=== PATIENT | female | born 1985 | race Caucasian/White ===

== ENCOUNTER → 2018-05-18 | Outpatient (CLI) | payer OTHER ==
[2018-05-18 10:51] VITALS: BP 130/88; PULSE 77; BMI 35.5
--- NOTE | 2018-05-18 11:16 | P.GSHP ---
History of Present Illness H&P Date: 05/18/18 Patient is able to feel a nodule in her right breast since November. No nipple discharge or changes. The patient originally presented secondary to lateral left breast pain. She states that she does not note any nodules in her left breast but does not note a nodule in her right breast since November. The area that she notes that nodularity at is consistent with the area seen in the right breast of microcalcifications on her mammogram. The patient has not had any trauma to her breast. The patient does not have any infection in her breast. The patient drinks at least one caffeinated beverage a day. She does not smoke and does not live with a smokers. The patient does not eat much chocolate. The pain in the left breast is not cyclical is constant in nature. This located in the lateral aspect of the breast. It does not radiate anyplace. The pain never goes away. She does not know what would make it better or worse. She questions whether this may be muscular in nature. Family history: 1. Maternal great grandmother: breast 2. Paternal grandmother: Breast cancer at the age of 84 Hormonal history: Menarche: 12 Pregnancies: First at the age of 24, she did breast-feed Periods are regular initially on control however they have become more regular since she has had a tubal ligation control pills: 4 years Hormones: none Past Surgical History: 1. tubal 2. two c-sections 3. wisdom teeth Past Medical History: 1. knees pain Social History smoke: none alcohol: none drugs: none - Constitutional Constitutional: Denies chills, Denies fever - EENT Eyes: bilateral blurred vision (with migrains) Ears: bilateral: decreased hearing, deny: tinnitus Ears, nose, mouth and throat: Reports headache - Breasts Breasts: bilateral: as per HPI - Cardiovascular Cardiovascular: Reports high blood pressure - Respiratory Comment: asthma Respiratory: Denies cough, Denies 7 - Gastrointestinal Gastrointestinal: Denies abdominal pain, Denies diarrhea, Denies nausea, Denies vomiting - Genitourinary (Female) Genitourinary: Denies dysuria, Denies hematuria - Menstruation Menstruation: Reports as per HPI - Musculoskeletal Comment: pinched nerves in back Musculoskeletal: Denies myalgias - Integumentary Integumentary: Denies pruritus, Denies rash - Neurological Neurological: Reports numbness, Denies weakness - Psychiatric Psychiatric: Reports anxiety, Reports depression - Endocrine Endocrine: Reports fatigue, Reports weight change - Hematologic/Lymphatic Comment: none - Allergic/Immunologic Allergic/Immunologic: Reports seasonal allergies Past Medical History Past Medical History: No Reported History History of Any Multi-Drug Resistant Organisms: None Reported Past Surgical History: Section, Tubal Ligation Past Psychological History: No Psychological Hx Reported Smoking Status: Never smoker Past Alcohol Use History: Occasional Past Drug Use History: None Reported - Past Family History Father Family Medical History: Osteoarthritis (OA) Additional Family Medical History / Comment(s): knee issues Mother Family Medical History: Diabetes Mellitus, Osteoarthritis (OA), Sleep Apnea/CPAP /BIPAP, Thyroid Disorder Additional Family Medical History / Comment(s): knee issues Medications and Allergies Home Medications Medication Instructions Recorded Confirmed Type Desvenlafaxine Succinate [Pristiq] 50 mg PO DAILY 05/18/18 05/18/18 History Allergies Allergy/AdvReac Type Severity Reaction Status Date / Time Penicillins Allergy Unknown Verified 06/21/14 21:04 Surgical - Exam Vital Signs Pulse BP Pulse Ox 77 130/88 99 05/18/18 10:46 05/18/18 10:46 05/18/18 10:46 - General well developed, well nourished, no distress - Eyes normal ocular movement, no icteric - ENT no hearing loss, no congestion - Neck no masses, trachea midline - Respiratory normal respiratory effort, clear to auscultation - Cardiovascular Rhythm: regular Heart Sounds: normal: S1, S2 - Abdomen Abdomen: soft, non tender, no guarding, no rigid, no rebound - Neurologic no disoriented, no combative - Musculoskeletal normal gait, normal posture - Psychiatric oriented to time, oriented to person, oriented to place, speech is normal, memory intact Breast examination: Right breast: Multiple positional exam fibrocystic changes, and the periareolar area at approximately the 3 o'clock position there is some increased nodularity which is somewhat tender for the patient This appears to correspond to that which was seen mammographically Right axilla: No adenopathy of concern Left breast: Multiple positional exam no dominant masses or nodules of concern fibrocystic changes Left axilla: No adenopathy of concern Results Radiograph reports reviewed Assessment and Plan Assessment: Impression/plan: 1. Radiographic abnormality right breast 2. Palpable change right breast 3. Left breast pain 4. Hypertension 5. Anxiety/depression Plan: 1. FNA of palpable change right breast 2. We have discussed causes for breast pain including caffeine and the possibility that the pain may be decreased if she can stop the caffeine 3. Medical management of medical problems We are going to do an FNA of the palpable change in the right breast, depending on results of this we may opt for excision of the area of concern versus continued surveillance with repeat mammogram in 6 months time. The patient is also been instructed to stop caffeine and that this may help with the pain in the left breast. She has also been instructed to take primrose oil and she will be seen again next week for results of the FNA. Cc: Dr. Dalton
--- NOTE | 2018-05-18 11:20 | P.PCN ---
Date of Procedure: 05/18/18 Preoperative Diagnosis: Palpable mass right breast periareolar area Postoperative Diagnosis: Same Procedure(s) Performed: FNA of the right breast palpable abnormality Surgeon: Citlaly Dela Cruz Estimated Blood Loss (ml): 0 Pathology: other (cytology right breast) Condition: stable Disposition: same day Indications for Procedure: palpable nodule right breast Description of Procedure: The area of the right breast periareolar area was prepped using alcohol. 22- gauge needle on a 10 mL syringe was passed into the palpable abnormality and cells were obtained. The cells were placed on a slide and sent to pathology. The patient tolerated the procedure in stable condition.
== END ==
LOC: WWCWWP 10:20
PROVIDERS: ATTEND Surgery
DX: N63.10 Unspecified lump in the right breast, unspecified quadrant (principal)
CPT/HCPCS: 88173

== ENCOUNTER → 2018-05-25 | Outpatient (CLI) | payer OTHER ==
[2018-05-25 09:38] VITALS: BP 134/85; PULSE 77; BMI 35.5
--- NOTE | 2018-05-25 09:49 | P.PN ---
Progress Note - Text Progress Note Date: 05/25/18 Patient is a 33-year-old white female who is status post FNA of a palpable abnormality in the right breast. The cytology came back with no atypical cells and adipose tissue. This would be consistent with some lobulated fatty tissue which was most likely palpable. The patient is reassured. And the patient will follow up in 3 months time for repeat examination. Physical exam: Examination of the area of the FNA reveals some mild ecchymosis no evidence of infection or hematoma Impression/plan: 1. Mammographic abnormality right breast 2. Palpable change left breast FNA benign adipose tissue Plan: 1. Repeat mammogram/and an ultrasound of the right breast 6 months from her last mammogram with physician exam at that time 2. If patient notes any anything of concern would like to see her sooner Cc: Dr. Audelia Dalton
== END ==
LOC: WWCWWP 09:26
PROVIDERS: ATTEND Surgery
DX: Z53.9 Procedure and treatment not carried out, unspecified reason (principal)

== ENCOUNTER 2019-01-09 08:11 | Emergency (ER) | payer BC, OTHER ==
[2019-01-09 08:21] VITALS: RESP 18
[2019-01-09] MEDS ORDERED: DIPH,PERTUS(ACELL)TETVAC-LF 0.5 ML VIAL IM ONE (08:30)
[2019-01-09] MEDS ORDERED: CLINDAMYCIN 600 MG in DEXTROSE 5% IN WATER 50 ML IVPB STA ×2 (08:31)
[2019-01-09] MEDS ORDERED: LEVOFLOXACIN 750MG-D5W PMX 750 MG in DEXTROSE/WATER 1 150ML.BAG IVPB STA (08:31)
[2019-01-09] MEDS ORDERED: SODIUM CHLORIDE 0.9% 1,000 ML IV ONE (08:32)
[2019-01-09] MEDS ORDERED: MORPHINE SULFATE 4 MG/ML SYRINGE IVP STA (08:32)
--- NOTE | 2019-01-09 08:37 | ED ---
Animal Bite HPI - General Chief Complaint: Animal Bite Stated Complaint: DOG BITE Time Seen by Provider: 01/09/19 08:21 Source: patient, EMS, RN notes reviewed, old records reviewed Mode of arrival: EMS - History of Present Illness Initial Comments: Management is a 33-year-old female who presents emergency department today after her pitbull bit her jaw and lip. Patient reports that she was in an argument with her son. The dog jumped up to protect her son and bit her in the face. Patient reports the dog was recently fixed, and received all his vaccines yesterday. Patient states that he removed a piece of the skin over her jaw line. Patient reports that the laceration is through her lip. She denies any other injuries at this time. She states her tetanus is not up-to-date. Patient is not concern for rabies for the dog at this time. Declines rabies prophylaxis. - Related Data Home Medications Medication Instructions Recorded Confirmed No Known Home Medications 01/09/19 01/09/19 Allergies Allergy/AdvReac Type Severity Reaction Status Date / Time Penicillins Allergy Anaphylaxis Verified 01/09/19 08:42 latex powder Allergy Anaphylaxis Uncoded 01/09/19 08:22 Review of Systems ROS Statement: Those systems with pertinent positive or pertinent negative responses have been documented in the HPI. ROS Other: All systems not noted in ROS Statement are negative. Past Medical History Past Medical History: Hypertension History of Any Multi-Drug Resistant Organisms: None Reported Past Surgical History: Section, Tubal Ligation Additional Past Surgical History / Comment(s): wisdom teeth removed Past Psychological History: No Psychological Hx Reported Smoking Status: Never smoker Past Alcohol Use History: None Reported Past Drug Use History: None Reported - Past Family History Father Family Medical History: Osteoarthritis (OA) Additional Family Medical History / Comment(s): knee issues Mother Family Medical History: Diabetes Mellitus, Osteoarthritis (OA), Sleep Apnea/CPAP/BIPAP, Thyroid Disorder Additional Family Medical History / Comment(s): knee issues General Exam - General Exam Comments Initial Comments: This is a 33-year-old female. Alert and oriented 3. Patient appears anxious. General appearance: alert, in no apparent distress Head exam: Present: atraumatic, normocephalic, normal inspection Eye exam: Present: normal appearance, PERRL, EOMI. Absent: scleral icterus, conjunctival injection, periorbital swelling ENT exam: Present: mucous membranes moist, other (Patient has a 6 cm x 3 cm irregular laceration with missing soft tissue and skin. Laceration is through and through to the lip.). Absent: normal exam Neck exam: Present: normal inspection. Absent: tenderness, meningismus, lymphadenopathy Respiratory exam: Present: normal lung sounds bilaterally. Absent: respiratory distress, wheezes, rales, rhonchi, stridor Cardiovascular Exam: Present: regular rate, normal rhythm, normal heart sounds. Absent: systolic murmur, diastolic murmur, rubs, gallop, clicks GI/Abdominal exam: Present: soft, normal bowel sounds. Absent: distended, tenderness, guarding, rebound, rigid Extremities exam: Present: normal inspection, full ROM, normal capillary refill. Absent: tenderness, pedal edema, joint swelling, calf tenderness Back exam: Present: normal inspection Neurological exam: Present: alert, oriented X3, CN II-XII intact Psychiatric exam: Present: normal affect, normal mood Skin exam: Present: warm, dry, intact, normal color. Absent: rash Course Vital Signs 01/09/19 08:18 Temperature 97.8 F Pulse Rate 77 Respiratory 18 Rate Blood Pressure 147/99 O2 Sat by Pulse 96 Oximetry Medical Decision Making - Medical Decision Making Patient is a 33-year-old female presents emergency department today with a dog bite. Patient has a extensive irregular laceration involving the right jaw and lip, and it is a through and through laceration. Patient's laceration was thoroughly irrigated with sterile water and wet-to-dry dressing was placed. She declines rabies prophylaxis. Patient's airway is protected, no neck trauma noted. Patient was started on IV clindamycin and Levaquin due to ALLERGIES to penicillins. Patient was given pain medication. Patient given TDAP. Patient will need to be transferred due to the extensive laceration and will require plastic surgery consult. Patient's family requests transferred Kennedy Quintana. I discussed the case with Dr. Derek Quintana accepts the transfer. Disposition Clinical Impression: Dog bite of face Disposition: DC/TRNS INTERMEDIATE CARE FAC Condition: Stable Instructions (If sedation given, give patient instructions): Animal Bite (ED) Is patient prescribed a controlled substance at d/c from ED?: No Referrals: Audelia Dalton DO [Primary Care Provider] - 1-2 days Time of Disposition: 09:09 - Out of Hospital Transfer - Req. Specs Out of Hospital Transfer - Requested Specifics: Other Emergency Center ([facility])
[2019-01-09] MEDS ORDERED: SODIUM CHLORIDE 0.9% 1,000 ML IV SCH (08:45)
[2019-01-09] MEDS ORDERED: ONDANSETRON 4 MG/2 ML VIAL IVP STA (08:55)
[2019-01-09 10:08] VITALS: BP 139/99; PULSE 70
[2019-01-09 10:09] VITALS: TEMP 97.6
== END 2019-01-09 10:09 ==
LOC: EC 08:11
DX: S01.81XA Laceration without foreign body of other part of head, initial encounter (principal); S01.511A Laceration without foreign body of lip, initial encounter; Z88.0 Allergy status to penicillin; Z91.040 Latex allergy status; Z53.29 Procedure and treatment not carried out because of patient's decision for other reasons; Z23 Encounter for immunization; W54.0XXA Bitten by dog, initial encounter; Y92.009 Unspecified place in unspecified non-institutional (private) residence as the place of occurrence of the external cause
CPT/HCPCS: 90715; 99284; 96365; 96368; 96375 ×2; 90471; J2270; J2405; J1956

== ENCOUNTER → 2019-06-12 | Outpatient (CLI) | payer BC, OTHER ==
--- NOTE | 2019-06-13 07:50 | MM ---
Reason for exam: follow-up at short interval from prior study. History: Family history of breast cancer in paternal grandmother at age 80. Cyst aspiration of the right breast, May 21, 2018. Physical Findings: Nurse Summary: 0.75cm nodule in the left breast at 11 o'clock and a 0.5cm nodule in the left breast at 2 o'clock (nurse TM). MG 3D Diag Mammo W/Cad JANET Bilateral CC and MLO view(s) were taken. The breast tissue is heterogeneously dense. This may lower the sensitivity of mammography. Finding: There are typically benign dystrophic calcifications in the subareolar position of the right breast. There is no discrete abnormality. These results were verbally communicated with the patient and result sheet given to the patient on 06/12/19. ASSESSMENT: Incomplete: need additional imaging evaluation, BI-RAD 0 RECOMMENDATION: Ultrasound of the left breast. (palpable on left, 2 sites)
--- NOTE | 2019-06-13 07:52 | USB ---
Reason for exam: additional evaluation requested from abnormal screening. History: Family history of breast cancer in paternal grandmother at age 80. Cyst aspiration of the right breast, May 21, 2018. US Breast Limited LT Left limited breast ultrasound including focal area of concern, retroareolar and axilla demonstrates no cystic or solid lesion seen. Dense tissue. These results were verbally communicated with the patient and result sheet given to the patient on 06/12/19. ASSESSMENT: Negative, BI-RAD 1 RECOMMENDATION: Routine screening mammogram of both breasts at age 40.
== END | disposition home or self-care (01) ==
LOC: RADMAMWWP 15:33
PROVIDERS: ATTEND Family Medicine
DX: R92.8 Other abnormal and inconclusive findings on diagnostic imaging of breast (principal)
CPT/HCPCS: 77062; 77066

== ENCOUNTER → 2019-06-19 | Outpatient (CLI) | payer OTHER ==
--- NOTE | 2019-06-19 17:28 | CT ---
EXAMINATION TYPE: CT brain dora wo con DATE OF EXAM: 06/19/2019 COMPARISON: NONE HISTORY: contusion to back of head following head injury. Head and neck pain. CT DLP: 1762 mGycm. Automated Exposure Control for Dose Reduction was Utilized. TECHNIQUE: CT scan of the head and cervical spine are performed without contrast. FINDINGS: There is no acute intracranial hemorrhage, mass effect, or midline shift identified. The ventricles and sulci are within normal limits in size. The globes are intact. Mild mucosal thickeni ng is seen of the ethmoid sinuses and left maxillary sinus. There is mild leftward nasal septal devia tion. Remaining paranasal sinuses and mastoid air cells are well aerated. Calvarium appears intact. Cervical spine is visualized in its entirety from C1 through upper thoracic levels and demonstrates s atisfactory alignment without evidence of acute fracture or dislocation. Prevertebral soft tissue ap pears within normal limits. The C1-C2 articulation is unremarkable. Straightening of usual cervical lordosis. IMPRESSION: 1. There is no acute fracture or dislocation evident in the cervical spine. 2. No acute intracranial hemorrhage, mass effect, or midline shift is seen. 3. Straightening of usual cervical lordosis may relate to muscular sprain, spasm or patient positioni ng. 4. Mild paranasal sinus disease.
== END | disposition home or self-care (01) ==
LOC: RADCTMAIN 16:39
PROVIDERS: ATTEND Emergency Medicine
DX: M54.2 Cervicalgia (principal); R51 Headache; S00.03XA Contusion of scalp, initial encounter; S13.4XXA Sprain of ligaments of cervical spine, initial encounter
CPT/HCPCS: 70450; 72125

== ENCOUNTER → 2019-08-05 | Outpatient (CLI) | payer OTHER ==
--- NOTE | 2019-08-05 13:11 | CT ---
EXAMINATION TYPE: CT cervical spine wo con DATE OF EXAM: 08/05/2019 COMPARISON: None HISTORY: Sprain of ligaments of cervical spine CT DLP: 485.[address] of the cervical spine was performed with bone and soft tissue window settings submitted . Coronal and sagittal reconstruction is obtained. There is normal alignment and prevertebral soft tissues. I do not see evidence for fracture or subluxation. No significant degenerative changes are present. The lung apices are clear IMPRESSION: No evidence for fracture or subluxation of the cervical spine. No significant degenerativ e disc disease or disc herniation seen.
== END | disposition home or self-care (01) ==
LOC: RADCTMAIN 12:34
PROVIDERS: ATTEND Emergency Medicine
DX: M54.2 Cervicalgia (principal); S13.4XXA Sprain of ligaments of cervical spine, initial encounter
CPT/HCPCS: 72125

== ENCOUNTER → 2020-08-26 | Outpatient (CLI) | payer BC, OTHER ==
--- NOTE | 2020-08-26 11:58 | CONS ---
CONSULTATION DATE OF SERVICE: 08/26/2020. A 35-year-old lady who has been evaluated in the [facility] for possible obstructive sleep apnea-hypopnea syndrome. HISTORY OF PRESENT ILLNESS/SLEEP-WAKE EVALUATION: Patient usual sleep schedule on weekdays from 11 p.m. to 6:45 am and on weekends from midnight until 8:30 a.m. Sometimes she has problems with falling asleep. She has TV set in bedroom. She prefers to sleep on the stomach position. She snores and has multiple awakenings at night, at least 5 times and episodes of nocturia. Also, she has a lot of twitching and kicking of her legs and numbness in her arms. PAST MEDICAL HISTORY: Positive for episodes of anxiety. PAST SURGICAL HISTORY: Facial surgery after a dog bite, tubal ligation, x2. MEDICATIONS: None. FAMILY HISTORY: Sleep apnea, arthritis, thyroid problems. REVIEW OF SYSTEMS: Multiple awakenings from sleep, sleepiness during the day. [place] Sleepiness Scale is 10. Also patient has problems with memory, concentration, irritability, difficulties to pay attention. PHYSICAL EXAM: lady without distress, BP 137/83, HR 72, RR 15, height 5 foot, 1 inch, weight 200 pounds, BMI 37.7, temperature 98.0, oxygen saturation 98%. OROPHARYNX: Extremely low position of soft palate. Mallampati 4. NECK: 16-1/2 inches in circumference. ABDOMEN: Obese. LUNGS: Clear to percussion and to auscultation. Good air exchange. No wheezing or rhonchi. HEART: S1, S2 regular. No murmurs, gallops, or rubs. EXTREMITIES: No clubbing or cyanosis. DELIVERY TECHNICIAN: Awake, alert, and oriented X3. Cranial nerves 2 to 7 intact. There is no fasciculation or atrophy. noted. No focal deficits observed. IMPRESSION: 1. Snoring, multiple awakenings from sleep, extremely low position of soft palate, Mallampati 4, wide neck 16-1/2 inches in circumference, sleepiness during the day. [place] Sleepiness Scale is 10. Obstructive sleep apnea-hypopnea syndrome. 2. Significant amount of twitching and kicking with the legs. Possible periodic limb movements. 3. Episodes of numbness in hands during the night. Possible carpal tunnel syndrome. 4. Obesity, BMI 37.7. 5. History of anxiety episodes. 6. Status post facial surgery after a dog bite. 7. Status post tubal ligation. 8. Status post x2. PLAN: 1. Polysomnography for evaluation of patient's breathing during sleep. 2. CPAP/BiPAP titration if sleep study confirms obstructive sleep apnea-hypopnea syndrome. 3. Preferable position during sleep on the side. 4. No driving if patient feels any sleepiness. 5. I will see patient for follow up visit to explain results of testing and following plan. Thank you very much for referring this patient for consultation. Sincerely, Mahendra Zamarripa MD, PhD, FAASM Diplomat of [employer] [employer] Mental Health Therapist of [facility] [place] MMODL / IJN: [id number] /
== END | disposition home or self-care (01) ==
LOC: SLEEP 10:44
PROVIDERS: ATTEND Internal Medicine
DX: R06.83 Snoring (principal); R25.3 Fasciculation; E66.9 Obesity, unspecified; Z68.37 Body mass index [BMI] 37.0-37.9, adult
CPT/HCPCS: 99211

== ENCOUNTER 2020-12-11 11:37 | Emergency (ER) | payer BC, OTHER ==
[2020-12-11 11:43] VITALS: TEMP 98.4
--- NOTE | 2020-12-11 12:29 | XR ---
EXAMINATION TYPE: XR chest 2V DATE OF EXAM: 12/11/2020 COMPARISON: NONE HISTORY: covid positive, cough TECHNIQUE: Frontal and lateral views of the chest are obtained. FINDINGS: There are low lung volumes with patchy multifocal bilateral opacities. No pleural effusion or pneumothorax seen. The cardiac silhouette size is upper limits of normal. The osseous structure s are intact. IMPRESSION: Low lung volumes with patchy bilateral multifocal opacities consistent with covid-19 inf ection.
[2020-12-11] MEDS ORDERED: BAMLANIVIMAB 700 MG in SODIUM CHLORIDE 0.9% 50 ML IVPB ONE (12:45)
--- NOTE | 2020-12-11 13:02 | ED ---
General Adult HPI - General Chief complaint: Upper Respiratory Infection Stated complaint: COVID+/increased cough Time Seen by Provider: 12/11/20 11:47 Source: patient, RN notes reviewed Mode of arrival: ambulatory Limitations: no limitations - History of Present Illness Initial comments: This a 35-year-old female presents emergency Department chief plate of cough congestion shortness of breath. Patient was diagnosed with covid on 12/07/2020. Patient states that she does have a history of asthma states that she was discharged from her doctor's with azithromycin steroids and inhaler. She states this particular to change anything. She is instructed that she should receive an infusion but she is unsure what this is. Patient denies any chest or leg pain, leg swelling significant nausea vomiting diarrhea constipation she's had some on-and-off fevers. - Related Data Home Medications Medication Instructions Recorded Confirmed No Known Home Medications 01/09/19 01/09/19 Allergies Allergy/AdvReac Type Severity Reaction Status Date / Time ciprofloxacin Allergy Rash/Hives Verified 12/11/20 11:42 Penicillins Allergy Anaphylaxis Verified 01/09/19 08:42 latex powder Allergy Anaphylaxis Uncoded 01/09/19 08:22 Review of Systems ROS Statement: Those systems with pertinent positive or pertinent negative responses have been documented in the HPI. ROS Other: All systems not noted in ROS Statement are negative. Past Medical History Past Medical History: Asthma, Hypertension History of Any Multi-Drug Resistant Organisms: None Reported Past Surgical History: Section, Tubal Ligation Additional Past Surgical History / Comment(s): wisdom teeth removed Past Psychological History: No Psychological Hx Reported Past Alcohol Use History: None Reported Past Drug Use History: None Reported - Past Family History Father Family Medical History: Osteoarthritis (OA) Additional Family Medical History / Comment(s): knee issues Mother Family Medical History: Diabetes Mellitus, Osteoarthritis (OA), Sleep Apnea/CPAP/BIPAP, Thyroid Disorder Additional Family Medical History / Comment(s): knee issues General Exam Limitations: no limitations General appearance: alert, in no apparent distress Head exam: Present: atraumatic, normocephalic, normal inspection Eye exam: Present: normal appearance, PERRL, EOMI. Absent: scleral icterus, conjunctival injection, periorbital swelling ENT exam: Present: normal exam, normal oropharynx, mucous membranes moist Neck exam: Present: normal inspection, full ROM. Absent: tenderness, meningismus, lymphadenopathy Respiratory exam: Present: normal lung sounds bilaterally. Absent: respiratory distress, wheezes, rales, rhonchi, stridor Cardiovascular Exam: Present: regular rate, normal rhythm, normal heart sounds. Absent: systolic murmur, diastolic murmur, rubs, gallop, clicks GI/Abdominal exam: Present: soft, normal bowel sounds. Absent: distended, tenderness, guarding, rebound, rigid Course Vital Signs 12/11/20 11:40 Temperature 98.4 F Pulse Rate 96 Respiratory 18 Rate Blood Pressure 132/90 O2 Sat by Pulse 97 Oximetry Medical Decision Making - Medical Decision Making patient is currently stable and no signs of distress. X-ray does show some patchy infiltrates. Patient states did receive monoclonal antibodies in emergency department will be discharged in stable condition return parameters were discussed. Disposition Clinical Impression: Pneumonia due to COVID-19 virus Disposition: HOME SELF-CARE Condition: Stable Instructions (If sedation given, give patient instructions): Coronavirus Disease 2019 (COVID-19) Additional Instructions: Please return to the Emergency Department if symptoms worsen or any other concerns. Is patient prescribed a controlled substance at d/c from ED?: No Referrals: Audelia Dalton DO [Primary Care Provider] - 1-2 days Time of Disposition: 13:03
[2020-12-11 14:21] VITALS: BP 123/86; PULSE 89; RESP 16
== END 2020-12-11 14:21 | disposition home or self-care (01) ==
LOC: EC 11:37
DX: U07.1 COVID-19 (principal); J12.82 Pneumonia due to coronavirus disease 2019; I10 Essential (primary) hypertension; J45.909 Unspecified asthma, uncomplicated
CPT/HCPCS: 71046; 99283; 96374; Q0239

== ENCOUNTER → 2021-11-12 | Outpatient (CLI) | payer OTHER ==
--- NOTE | 2021-11-12 09:55 | MM ---
Reason for exam: clinical finding. Last mammogram was performed 2 years and 5 months ago. History: Family history of breast cancer in paternal grandmother at age 80. Cyst aspiration of the right breast, May 21, 2018. Took hormonal contraceptives for 4 years. Indicated problem(s): lump or thickening in both breasts. Physical Findings: Nurse Summary: 1-1.5cm nodule in the right breast at 11 o'clock (nurse db). MG 3D Diag Mammo W/Cad JANET Bilateral CC, MLO, and LM view(s) were taken. Prior study comparison: June 12, 2019, bilateral MG 3d diag mammo w/cad JANET. The breast tissue is heterogeneously dense. This may lower the sensitivity of mammography. There is no discrete abnormality. No significant new findings when compared with previous films. These results were verbally communicated with the patient and result sheet given to the patient on 11/12/21. ASSESSMENT: Negative, BI-RAD 1 RECOMMENDATION: Routine screening mammogram of both breasts at age 40. Manage patient on a clinical basis.
== END | disposition home or self-care (01) ==
LOC: RADMAMWWP 08:41
PROVIDERS: ATTEND Family Medicine
DX: N63.20 Unspecified lump in the left breast, unspecified quadrant (principal); Z80.3 Family history of malignant neoplasm of breast
CPT/HCPCS: 77066; G0279; 77062